=== PATIENT | female | born 1960 | race Caucasian/White ===

== ENCOUNTER 2016-07-23 17:18 | Emergency (ER) | payer SELFPAY ==
[2016-07-23] MEDS ORDERED: Lorazepam 2 MG/ML VIAL ONE (17:28)
[2016-07-23] MEDS ORDERED: Ketorolac Tromethamine 30 MG/ML VIAL ONE (17:29)
[2016-07-23] MEDS ORDERED: Ondansetron HCl/PF 4 MG/2 ML Vial ONE (17:29)
[2016-07-23 19:10] LABS: ALT (SGPT) 13 U/L (8-55); AST (SGOT) 14 U/L (5-34); Acetaminophen Less than 6.0 mcg/mL (10.0-30.0); Albumin 3.8 g/dL (3.5-5.0); Alcohol Less than 10 mg/dL (Less than 10); Alkaline Phosphatase 75 U/L (40-150); Anion Gap 15 mmol/L (10-20); BUN (Urea Nitrogen) 14 mg/dL (9.8-20.1); Bilirubin, Total 0.3 mg/dL (0.2-1.2); Calc. Creatinine Clearance 0 mL/min (70-130); Calcium 8.5 mg/dL (7.8-10.44); Carbon Dioxide 22 mmol/L (22-29); Chloride 110 mmol/L (98-107); Estimated GFR-MDRD 67; Globulin 2.7 g/dL (2.4-3.5); Glucose 152 mg/dL (70-105); Potassium 3.5 mmol/L (3.5-5.1); Protein, Total 6.5 g/dL (6.0-8.3); Salicylate Less than 8.0 mg/dL (15.0-30.0); Sodium 143 mmol/L (136-145)
[2016-07-23 19:12] LABS: PTT 28.6 SEC (22.9-36.1); Prothrombin Time 13.2 SEC (12.0-14.7)
[2016-07-23 19:13] LABS: #Basophils 0.2 thou/uL (0.0-0.2); #Lymphocytes 0.7 thou/uL (1.20-3.40); #Monocytes 0.8 thou/uL (0.11-0.59); %Basophils 0.9 % (0.0-1.0); %Eosinophils 0.2 % (0.0-10.0); %Lymphocytes 3.8 % (21.0-51.0); %Monocytes 4.3 % (0.0-10.0); %Neutrophils 90.8 % (42.0-75.0); Hemoglobin 13.9 g/dL (12.0-16.0); Mean Corpuscular Hemoglobin 35.2 pg (27.0-31.0); Mean Corpuscular Volume 97.9 fl (81.0-99.0); Mean Platelet Volume 9.5 fL (7.4-10.4); Platelet Count 221 thou/uL (130-400); RBC Distribution Width 12.3 % (11.5-14.5); Red Blood Cell (RBC) Count 3.94 mill/uL (4.20-5.40); White Blood Cell (WBC) Count 17.6 thou/uL (4.8-10.8)
[2016-07-23 19:15] LABS: Bacteria/HPF Rare-Few HPF (None Seen); Bilirubin Negative (Negative); Blood, Urine Moderate (Negative); Clarity Clear (Clear); Glucose, Urine (Dipstick) Negative (Negative); Leukocyte Negative (Negative); Nitrite Negative (Negative); Protein, Urine (Dipstick) Negative (Neg-Trace); Renal Epithelial 0-3 HPF (0-3); Specific Gravity, Urine 1.025 (1.005-1.030); Transitional Epithelial 0-3 HPF (0-3); Urobilinogen 0.2 mg/dL (0.2-1.0)
[2016-07-23 19:16] LABS: Amphetamine Not Detected (NotDetected); Barbiturates Screen Not Detected (NotDetected); Benzodiazepine Screen Not Detected (NotDetected); Cocaine Metabolite Screen Not Detected (NotDetected); Medtox Control Line Valid? VALID (VALID); Methadone Not Detected (NotDetected); Methamphetamine Not Detected (NotDetected); Opiate Screen Not Detected (NotDetected); Oxycodone Screen Not Detected (NotDetected); Phencyclidine (PCP) Not Detected (NotDetected); THC/Cannabinoid Screen Detected (NotDetected); Tricyclic Screen Not Detected (NotDetected)
[2016-07-23] MEDS ORDERED: Sulfameth/Trimethoprim DS 800-160mg TAB ONE (19:50)
== END 2016-07-23 19:55 | disposition home or self-care (01) ==
LOC: MADERS 17:18
DX: F43.0 Acute stress reaction (principal); N39.0 Urinary tract infection, site not specified
CPT/HCPCS: 36415; 51702; 80053; 80306; 80307; 81001; 83880; 84443; 85025; 85610; 85730; 86140; 87086; 93005; 96374; 96375; A4353; J1885; J2060; J2405

== ENCOUNTER 2016-08-02 12:05 | Emergency (ER) | payer OTHER, SELFPAY ==
[~2016-08-02 12:05] MED LIST: Iopamidol 370 76% 100 ML VIAL ONE
[2016-08-02] MEDS ORDERED: Lorazepam 2 MG/ML VIAL ONE (12:31)
[2016-08-02] MEDS ORDERED: Ondansetron HCl/PF 4 MG/2 ML Vial ONE (12:31)
[2016-08-02] MEDS ORDERED: Morphine Sulfate 2 MG/ML SYRINGE ONE (12:31)
[2016-08-02 12:45] LABS: #Eosinphils 0.1 thou/uL (0.0-0.7); #Lymphocytes 1.5 thou/uL (1.20-3.40); #Monocytes 0.4 thou/uL (0.11-0.59); #Neutrophils 8.1 thou/uL (1.40-6.50); %Basophils 0.4 % (0.0-1.0); %Eosinophils 0.9 % (0.0-10.0); %Lymphocytes 15.1 % (21.0-51.0); %Monocytes 4.2 % (0.0-10.0); %Neutrophils 79.4 % (42.0-75.0); Hemoglobin 13.5 g/dL (12.0-16.0); Mean Corpuscular HGB CONC 34.8 g/dL (32.0-36.0); Mean Corpuscular Volume 97.7 fl (81.0-99.0); Mean Platelet Volume 9.8 fL (7.4-10.4); Platelet Count 222 thou/uL (130-400); RBC Distribution Width 11.8 % (11.5-14.5); Red Blood Cell (RBC) Count 3.98 mill/uL (4.20-5.40); White Blood Cell (WBC) Count 10.2 thou/uL (4.8-10.8)
[2016-08-02 13:04] LABS: ALT (SGPT) 23 U/L (8-55); AST (SGOT) 19 U/L (5-34); Albumin 4.3 g/dL (3.5-5.0); Alkaline Phosphatase 82 U/L (40-150); Anion Gap 16 mmol/L (10-20); BUN (Urea Nitrogen) 19 mg/dL (9.8-20.1); Bilirubin, Total 0.6 mg/dL (0.2-1.2); Calc. Creatinine Clearance 0 mL/min (70-130); Calcium 9.3 mg/dL (7.8-10.44); Carbon Dioxide 20 mmol/L (22-29); Chloride 108 mmol/L (98-107); Estimated GFR-MDRD 71; Globulin 3.5 g/dL (2.4-3.5); Glucose 118 mg/dL (70-105); Lipase 44 U/L (8-78); Potassium 3.7 mmol/L (3.5-5.1); Protein, Total 7.8 g/dL (6.0-8.3); Sodium 140 mmol/L (136-145)
[2016-08-02 13:05] LABS: CKMB 0.6 ng/mL (0-6.6); Troponin I Less than 0.010 ng/mL (< 0.028)
[2016-08-02 13:40] LABS: Acetaminophen Less than 6.0 mcg/mL (10.0-30.0); Alcohol Less than 10 mg/dL (Less than 10); Salicylate Less than 8.0 mg/dL (15.0-30.0)
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
[2016-08-02 13:50] LABS: Bacteria/HPF Rare-Few HPF (None Seen); Bilirubin Negative (Negative); Blood, Urine Small (Negative); Clarity Hazy (Clear); Glucose, Urine (Dipstick) Negative (Negative); Leukocyte Negative (Negative); Nitrite Negative (Negative); Protein, Urine (Dipstick) 30 mg/dL (Neg-Trace); Specific Gravity, Urine 1.015 (1.005-1.030); Urobilinogen 0.2 mg/dL (0.2-1.0); WBC/HPF 0-3 HPF (0-3); pH, Urine 8.5 (5.0-9.0)
[2016-08-02 13:51] LABS: Amphetamine Not Detected (NotDetected); Barbiturates Screen Not Detected (NotDetected); Benzodiazepine Screen Not Detected (NotDetected); Cocaine Metabolite Screen Not Detected (NotDetected); Methadone Not Detected (NotDetected); Methamphetamine Not Detected (NotDetected); Opiate Screen Not Detected (NotDetected); Oxycodone Screen Not Detected (NotDetected); Phencyclidine (PCP) Not Detected (NotDetected); THC/Cannabinoid Screen Detected (NotDetected); Tricyclic Screen Not Detected (NotDetected)
[2016-08-02 13:52] LABS: Medtox Control Line Valid? VALID (VALID)
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
== END 2016-08-02 14:40 | disposition home or self-care (01) ==
LOC: MADERS 12:05
DX: S93.402A Sprain of unspecified ligament of left ankle, initial encounter (principal); S70.02XA Contusion of left hip, initial encounter; F41.9 Anxiety disorder, unspecified; V09.9XXA Pedestrian injured in unspecified transport accident, initial encounter
CPT/HCPCS: 36415; 51701; 70450; 71260; 72125; 74177; 80053; 80306; 80307; 81001; 82553; 83690; 84484; 85025; 87086; 93005; 96374; 96375; A4353; J2060; J2270; J2405

== ENCOUNTER 2016-08-03 10:41 | Emergency (ER) | payer OTHER, SELFPAY ==
[2016-08-03 11:28] LABS: Clarity Hazy (Clear); Leukocyte Negative (Negative); Nitrite Negative (Negative); Protein, Urine (Dipstick) 30 mg/dL (Neg-Trace); Specific Gravity, Urine 1.025 (1.005-1.030); pH, Urine 5.5 (5.0-9.0)
[2016-08-03 11:29] LABS: Glucose, Urine (Dipstick) Negative (Negative)
[2016-08-03 11:30] LABS: Bilirubin Negative (Negative); Blood, Urine Large (Negative); Icto Negative (Negative)
[2016-08-03 11:31] LABS: Bacteria/HPF Rare-Few HPF (None Seen); WBC/HPF 0-3 HPF (0-3)
== END 2016-08-03 12:00 | disposition home or self-care (01) ==
LOC: MADERS 10:41
DX: R31.9 Hematuria, unspecified (principal); F41.9 Anxiety disorder, unspecified
CPT/HCPCS: 81003; 81015; 99283

== ENCOUNTER 2017-11-22 14:18 | Outpatient (CLI) | payer OTHER ==
--- NOTE | 2017-11-22 17:41 | RAD ---
TWO VIEWS LEFT FOREARM: DATE: 11/22/2017. HISTORY: Post surgery. COMPARISON: None available. FINDINGS: There is a dorsal plate and screws transfixing a fracture involving the distal diaphysis of the left ulna. No hardware complication is seen. No additional fracture is seen, and there is no dislocation . Subcutaneous edema is seen at the level of the fracture and postsurgical change. IMPRESSION: Internal fixation of fracture involving the left ulnar diaphysis. POS: [facility]
== END 2017-11-22 14:19 | disposition home or self-care (01) ==
LOC: MADRAD 14:18
PROVIDERS: ATTEND Orthopaedic Surgery
DX: S52.91XD Unspecified fracture of right forearm, subsequent encounter for closed fracture with routine healing (principal); T84.113 Breakdown (mechanical) of internal fixation device of bone of left forearm

== ENCOUNTER 2018-12-12 09:51 | Emergency (ER) | payer SELFPAY ==
[2018-12-12 10:42] LABS: #Monocytes 0.4 thou/uL (0.11-0.59); #Neutrophils 6.4 thou/uL (1.40-6.50); %Basophils 0.5 % (0.0-1.0); %Eosinophils 0.4 % (0.0-10.0); %Lymphocytes 12.7 % (21.0-51.0); %Monocytes 4.5 % (0.0-10.0); %Neutrophils 81.9 % (42.0-75.0); Hemoglobin 13.5 g/dL (12.0-16.0); Mean Corpuscular HGB CONC 32.9 g/dL (32.0-36.0); Mean Corpuscular Volume 94.2 fL (78.0-98.0); Mean Platelet Volume 7.7 fL (7.4-10.4); Platelet Count 251 thou/uL (130-400); RBC Distribution Width 12.4 % (11.5-14.5); Red Blood Cell (RBC) Count 4.36 mill/uL (4.20-5.40); White Blood Cell (WBC) Count 7.8 thou/uL (4.8-10.8)
[2018-12-12 11:01] LABS: ALT (SGPT) 12 U/L (8-55); AST (SGOT) 16 U/L (5-34); Albumin 4.6 g/dL (3.5-5.0); Alkaline Phosphatase 72 U/L (40-110); Anion Gap 16 mmol/L (10-20); BUN (Urea Nitrogen) 14 mg/dL (9.8-20.1); Bilirubin, Total 0.4 mg/dL (0.2-1.2); Calc. Creatinine Clearance 0 mL/min (70-130); Calcium 9.8 mg/dL (7.8-10.44); Carbon Dioxide 24 mmol/L (22-29); Chloride 106 mmol/L (98-107); Estimated GFR-MDRD 62; Globulin 3.3 g/dL (2.4-3.5); Glucose 114 mg/dL (70-105); Potassium 3.7 mmol/L (3.5-5.1); Protein, Total 7.9 g/dL (6.0-8.3); Sodium 142 mmol/L (136-145)
[2018-12-12 11:06] LABS: Acetaminophen Less than 6.0 mcg/mL (10.0-30.0); Alcohol Less than 10 mg/dL (Less than 10); Salicylate Less than 8.0 mg/dL (15.0-30.0)
== END 2018-12-12 11:30 | disposition left against medical advice (07) ==
LOC: MADERS 09:51
DX: F22 Delusional disorders (principal); F41.9 Anxiety disorder, unspecified; F43.10 Post-traumatic stress disorder, unspecified
CPT/HCPCS: 80053; 80307; 84443; 84484; 85025; 93005; 94760